=== PATIENT | female | born 1935 | race Caucasian/White ===

== ENCOUNTER 2016-09-18 21:26 | Emergency (ER) | payer MEDICARE ==
[~2016-09-18] VITALS: Ht 154.9 cm; Wt 71.8 kg
[~2016-09-18 21:26] MED LIST: 00186-0370-20 IH; ALDACTONE50 MG PO; ARTIFICIAL TEARS OP; ASPIRIN 81M81 MG/TA2 PO; ASPIRIN E.C. 8181 MG PO; CALCITRIOL PO; CALTRATE-600 W600 MG PO; CARDIZEM CD 12120 MG PO; CARTIA XT240 MG PO; CATAPRES0.3 MG PO; COLACE 100100 MG/CAP PO; CORDARONE200 MG/TAB PO; COUMADIN 1MG1 MG/TAB PO; COUMADIN 2MG2 MG/TAB PO; COUMADIN 3MG3 MG/TAB PO; COUMADIN 5MG5 MG/TAB PO; COUMADIN4 MG PO; DIOVAN 160MG160 MG PO; FENTANYL 50MCG TD; FISH OIL 1000MG1 CAP PO; FISH OIL1 IU PO; FOLIC ACID800 MCG PO; GLUCOPHAGE500 MG/TAB PO; HCTZ 25MG TAB25 MG PO; HYDROXYURE500 MG/CAP PO; IMDUR 60MG60 MG/TAB PO; IRON325 M2 PO; KLOR-CON M2020 MEQ PO; LASIX 20MG TABL20 MG PO; LASIX 40MG TABL40 MG PO; LEVOTHROID0.125 MG PO; LEVOXYL0.125 MG PO; LOVENOX 8080 MG/0.8 SQ; MACROBID 1100 MG/CAP PO; MICRO-K8 MEQ PO; MIRALAX 255 GM255 GM PO; MONOPRIL20 MG PO; MSIR30 MG PO; NATURAL POTASS595 MG PO; NITROSTAT0.4 MG/TAB SL; NORVASC 5MG5 MG/TAB PO; OYSTER SHELL C500 MG PO; PACERONE400 MG PO; PERC2.5TAB PO; PLAVIX 75MG TAB75 MG PO; PRAVACHOL 40MG40 MG PO; PRINIVIL10 MG PO; PRINIVIL20 MG PO; PROAIR HFA0.09 MG/AC IH; RT SPIRIVA18 MCG IH; SYNTHROID 0.10.15 MG PO; SYSTANE 0.3-0.1 EACH OP; TEARS-ARTIFICIA15 ML OP; TESSALON PERLE200 MG PO; TOPROL XL100 MG PO; VENTOLIN0.09 MG IH; VITAMIN D31000 IU PO; VITAMINC1000TA PO; ZANAFLEX CAPSULE4 MG PO; ZANTAC 150MG T150 MG PO; ZESTRIL 10MG10 MG PO; ZESTRIL40 MG PO; ZOFRAN ODT4 MG PO; [UNRECOGNIZED DRUG - OTHER]; provastatin PO
[2016-09-18 21:28] VITALS: TEMP 99.5
[2016-09-18] MEDS ORDERED: CALCIUM CARBON650 M2 (21:46)
[2016-09-18] MEDS ORDERED: CALCITRIOL PO (21:47)
[2016-09-18] MEDS ORDERED: ZEBETA 5MG5 MG PO (21:49)
[2016-09-18] MEDS ORDERED: LIPITOR 10MG10 MG PO (21:49)
[2016-09-18 22:16] LABS: BASO % 0.4 % (0.0-2.0); EOS # 0.1 (0.0-0.7); EOS % 1.4 % (0-4.0); GRAN # 5.6 (1.4-6.5); GRAN % 75.7 % (42.2-75.2); LYMPH # 0.9 (1.2-3.4); LYMPH % 11.5 % (20.0-51.0); MEAN CELL VOLUME 81 fl (80.0-100.0); MEAN CORPUSCULAR HGB CONC 32 g/dl (33.0-37.0); MEAN PLATELET VOLUME 11.6 fl (7.4-10.4); MONO # 0.8 (0.1-0.6); MONO % 10.6 % (1.7-9.3); PLATELET COUNT 175 K/mm3 (130-400); RED BLOOD COUNT 3.66 M/mm3 (4.10-5.30); REDCELL DISTRIBUTION WIDTH-CV 16.6 % (11.5-14.5); WHITE BLOOD COUNT 7.4 K/mm3 (4.8-10.8)
[2016-09-18 22:20] LABS: HEMATOCRIT 29.7 % (37.0-47.0); HEMOGLOBIN 9.5 g/dl (12.5-16.0); MEAN CORPUSCULAR HEMOGLOBIN 26 pg (27.0-31.0)
[2016-09-18 22:27] LABS: ADJUSTED CALCIUM 8.4 mg/dL (8.4-10.2); ALBUMIN 3.8 gm/dL (3.5-5.0); BILIRUBIN,TOTAL 0.7 mg/dL (0.0-1.0); CALCIUM 8.2 mg/dL (8.4-10.2); CREATININE, serum 1.19 mg/dL (0.52-1.25); PHOSPHOROUS 4.2 mg/dL (2.5-4.5); POTASSIUM 3.8 mmol/L (3.4-5.0); TOTAL PROTEIN 7.6 gm/dL (6.4-8.2)
[2016-09-18 22:39] LABS: TROPONIN-I 0.015 ng/mL (0.000-0.034)
[2016-09-18 22:49] LABS: PH 6 (5-8); SQUAMOUS EPITHELIAL 0-2 /hpf; URINE APPEARANCE Clear; URINE BACTERIA None Seen /hpf; URINE BILIRUBIN Negative (NEGATIVE); URINE BLOOD 2+ (NEGATIVE); URINE COLOR Yellow; URINE GLUCOSE Negative (NEGATIVE); URINE KETONE Negative (NEGATIVE); URINE WBC 0-2 /hpf
[2016-09-18 22:57] LABS: THYROID STIMULATING HORMONE 0.585 uIU/mL (0.465-4.680)
[2016-09-19] VITALS: BP 132/61
[2016-09-19 02:03] VITALS: PULSE 76
[2016-09-19] MEDS ORDERED: LEVAQUIN 5500 MG/TA1 PO (21:36)
== END 2016-09-19 02:05 | disposition home or self-care (01) ==
LOC: COL.ER 21:26
PROVIDERS: Emergency Medicine
DX: R53.1 Weakness (principal); I48.91 Unspecified atrial fibrillation; I50.9 Heart failure, unspecified; Z86.73 Personal history of transient ischemic attack (TIA), and cerebral infarction without residual deficits; Z95.2 Presence of prosthetic heart valve; Z95.0 Presence of cardiac pacemaker; R63.0 Anorexia; R42 Dizziness and giddiness
CPT/HCPCS: J0696; J7050

== ENCOUNTER → 2016-09-26 | Outpatient (REF) ==
[~2016-09-26] MED LIST changes: +CALCIUM CARBON650 M2; +LEVAQUIN 5500 MG/TA1 PO; +LIPITOR 10MG10 MG PO; +ZEBETA 5MG5 MG PO
[2016-09-26 20:28] LABS: GENTAMICIN TROUGH < 0.60 ug/mL (0.00-2.00)
[2016-09-26 21:40] LABS: C-REACTIVE PROTEIN 3.6 mg/dL (0.0-0.9)
== END ==
LOC: ZLAB.WCH 18:14
PROVIDERS: Nurse Practitioner Primary Care
DX: Z01.89 Encounter for other specified special examinations (principal)

== ENCOUNTER → 2016-09-29 | Outpatient (REF) | LOC: ZLAB.WCH 19:08 | DX: Z01.89 Encounter for other specified special examinations (principal) ==

== ENCOUNTER → 2016-10-03 | Outpatient (REF) | LOC: ZLAB.WCH 09:00 | DX: Z01.89 Encounter for other specified special examinations (principal) ==

== ENCOUNTER → 2016-10-03 | Outpatient (REF) | LOC: ZLAB.WCH 18:49 | DX: Z01.89 Encounter for other specified special examinations (principal) ==

== ENCOUNTER → 2016-10-05 | Outpatient (REF) | LOC: ZLAB.WCH 19:11 | DX: Z01.89 Encounter for other specified special examinations (principal) ==

== ENCOUNTER → 2016-10-17 | Outpatient (REF) | LOC: ZLAB.WCH 18:21 | DX: Z01.89 Encounter for other specified special examinations (principal) ==

== ENCOUNTER → 2016-10-24 | Outpatient (REF) | LOC: ZLAB.WCH 20:26 | DX: Z01.89 Encounter for other specified special examinations (principal) ==

== ENCOUNTER → 2016-10-31 | Outpatient (REF) | LOC: ZLAB.WCH 20:24 | DX: Z01.89 Encounter for other specified special examinations (principal) ==

== ENCOUNTER 2018-09-05 17:40 | Emergency (ER) | payer MEDICARE ==
[~2018-09-05] VITALS: Ht 154.9 cm; Wt 76.4 kg
[2018-09-05 18:02] VITALS: TEMP 97
[2018-09-05] MEDS ORDERED: GLUCOPHAGE500 MG/TAB PO (18:49)
[2018-09-05 19:20] LABS: BASO # 0.1 (0.0-0.2); BASO % 0.9 % (0.0-2.0); EOS # 0.4 (0.0-0.7); EOS % 4.9 % (0-4.0); GRAN # 5.5 (1.4-6.5); GRAN % 67.5 % (42.2-75.2); HEMOGLOBIN 11.4 g/dl (12.5-16.0); LYMPH # 1.4 (1.2-3.4); LYMPH % 17.2 % (20.0-51.0); MEAN CELL VOLUME 87 fl (80.0-100.0); MEAN CORPUSCULAR HEMOGLOBIN 28 pg (27.0-31.0); MEAN CORPUSCULAR HGB CONC 32 g/dl (33.0-37.0); MEAN PLATELET VOLUME 11.3 fl (7.4-10.4); MONO # 0.8 (0.1-0.6); MONO % 9.3 % (1.7-9.3); PLATELET COUNT 248 K/mm3 (130-400); RED BLOOD COUNT 4.11 M/mm3 (4.10-5.30); REDCELL DISTRIBUTION WIDTH-CV 15.3 % (11.5-14.5)
[2018-09-05 19:23] LABS: HEMATOCRIT 35.9 % (37.0-47.0)
[2018-09-05 19:41] LABS: PROTHROMBIN TIME 11.3 SECONDS (9.7-12.8)
[2018-09-05 20:04] VITALS: BP 120/53; PULSE 71
== END 2018-09-05 20:04 | disposition home or self-care (01) ==
LOC: COL.ER 17:40
PROVIDERS: Emergency Medicine
DX: R04.0 Epistaxis (principal); I48.91 Unspecified atrial fibrillation; E11.9 Type 2 diabetes mellitus without complications; I10 Essential (primary) hypertension; E03.9 Hypothyroidism, unspecified; J45.909 Unspecified asthma, uncomplicated; Z79.82 Long term (current) use of aspirin; Z86.73 Personal history of transient ischemic attack (TIA), and cerebral infarction without residual deficits; Z79.84 Long term (current) use of oral hypoglycemic drugs

== ENCOUNTER 2020-04-27 16:17 | Inpatient (IN) | payer MEDICARE ==
[~2020-04-27] VITALS: Ht 154.9 cm; Wt 71.8 kg
[~2020-04-27 16:17] MED LIST changes: -CALCIUM CARBON650 M2; +TUMS ULTRA ST1000 MG PO
[2020-04-27 17:36] LABS: BASO # 0.1 (0.0-0.2); BASO % 0.8 % (0.0-2.0); EOS # 0.3 (0.0-0.7); EOS % 3.3 % (0-4.0); GRAN # 4.8 (1.4-6.5); GRAN % 63.4 % (42.2-75.2); HEMOGLOBIN 10.2 g/dl (12.5-16.0); LYMPH # 1.7 (1.2-3.4); LYMPH % 22.7 % (20.0-51.0); MEAN CELL VOLUME 90 fl (80.0-100.0); MEAN CORPUSCULAR HEMOGLOBIN 28 pg (27.0-31.0); MEAN CORPUSCULAR HGB CONC 31 g/dl (33.0-37.0); MEAN PLATELET VOLUME 12.4 fl (7.4-10.4); MONO # 0.7 (0.1-0.6); MONO % 9.7 % (1.7-9.3); PLATELET COUNT 206 K/mm3 (130-400); RED BLOOD COUNT 3.66 M/mm3 (4.10-5.30); REDCELL DISTRIBUTION WIDTH-CV 15.9 % (11.5-14.5)
[2020-04-27 17:39] LABS: HEMATOCRIT 32.8 % (37.0-47.0)
[2020-04-27 17:50] LABS: ALANINE AMINOTRANSFERASE 390 U/L (4-34); ALKALINE PHOSPHATASE 131 U/L (50-136); ANION GAP 11 mmol/L (7-16); AST,SGOT 160 U/L (15-37); BILIRUBIN,TOTAL 0.5 mg/dL (0.0-1.0); BLOOD UREA NITROGEN 47 mg/dL (7-17); CALCIUM 9.3 mg/dL (8.4-10.2); CARBON DIOXIDE 26 mmol/L (22-30); CHLORIDE 102 mmol/L (98-107); CREATININE, serum 1.28 (0.52-1.25); GLUCOSE 91 mg/dL (74-106); POTASSIUM 4.2 mmol/L (3.4-5.0); SODIUM 139 mmol/L (137-145); TOTAL PROTEIN 7.5 gm/dL (6.4-8.2)
[2020-04-27 17:55] LABS: INR 1.4 (0.8-3.0); PROTHROMBIN TIME 15.2 SECONDS (9.7-12.8)
[2020-04-27 17:58] LABS: PARTIAL THROMBOPLASTIN TIME 33.3 SECONDS (26.0-37.0)
[2020-04-27 18:01] LABS: TROPONIN-I < 0.012 ng/mL (0.000-0.035)
[2020-04-27 20:10] LABS: TSH w REFLEX 3.93 uIU/mL (0.465-4.680)
--- NOTE | 2020-04-27 21:40 | NUR ---
Patient to medical room 315 at this time. She is alert and oriented and able to transfer with SBA from stretcher to bed. No skin issues or edema is noted. HR is currently in the low 100's; Patient has no complaints of SOA or dizziness. HR is irregular and tachycardic, lungs are clear. Cardizem gtt is initiated at 5ml/5mg an hour. Monitoring BP Q1 hours. Will continue to monitor.
[2020-04-27 22:18] VITALS: BP 117/85; PULSE 127; TEMP 97.2
[2020-04-27] MEDS ORDERED: B-12 500 MCG PO (22:42)
[2020-04-27] MEDS ORDERED: IRON18 MG1 (22:43)
[2020-04-27] MEDS ORDERED: ZEBETA10 MG PO (22:43)
[2020-04-27] MEDS ORDERED: ARICEPT10 MG PO (22:45)
[2020-04-27 23:04] VITALS: BP 110/62; PULSE 62; TEMP 97.2
[2020-04-28] VITALS (19 sets, daily range): BP systolic 97–135; BP diastolic 43–98; PULSE 55–129; TEMP 97.1–98.1
--- NOTE | 2020-04-28 04:45 | NUR ---
Patient's BP is 99/52 at this time. BRANDON Martin is notified and orders to hold Cardizem drip for now. At 0530, HR is back up to 120's. BRANDON Martin orders for restart of Cardizem drip at 5ml/hr. Patient is tolerating drip well and is maintaining pressures. Will continue to closely monitor.
--- NOTE | 2020-04-28 07:15 | NUR ---
Pt resting in bed. Assessment as noted. Telemetry on. HR irregular. Crackles noted in bilateral bases. No SOB at rest. Pitting edema 1+ BLE. INT to LAC intact. Pt denies pain. CMS CKS WNL.
[2020-04-28 07:23] LABS: BASO # 0.1 (0.0-0.2); BASO % 0.8 % (0.0-2.0); EOS # 0.3 (0.0-0.7); EOS % 4.9 % (0-4.0); GRAN # 3.8 (1.4-6.5); GRAN % 62.5 % (42.2-75.2); LYMPH # 1.3 (1.2-3.4); LYMPH % 21.1 % (20.0-51.0); MEAN CELL VOLUME 91 fl (80.0-100.0); MEAN CORPUSCULAR HGB CONC 31 g/dl (33.0-37.0); MONO # 0.6 (0.1-0.6); MONO % 10.5 % (1.7-9.3); PLATELET COUNT 176 K/mm3 (130-400); RED BLOOD COUNT 3.44 M/mm3 (4.10-5.30)
[2020-04-28 07:25] LABS: HEMATOCRIT 31.2 % (37.0-47.0); HEMOGLOBIN 9.8 g/dl (12.5-16.0); MEAN CORPUSCULAR HEMOGLOBIN 28 pg (27.0-31.0)
[2020-04-28 07:34] LABS: ALBUMIN 3.6 gm/dL (3.5-5.0); BILIRUBIN,TOTAL 0.6 mg/dL (0.0-1.0); CALCIUM 8.7 mg/dL (8.4-10.2); CREATININE, serum 1.14 (0.52-1.25); TOTAL PROTEIN 6.9 gm/dL (6.4-8.2)
--- NOTE | 2020-04-28 10:46 | NUR ---
Pt assessment completed and charted. Pt has [facility] student also providing cares this morning. Pt laying in bed, A&O, independent in room w/ cane. Pt on room air, breathing is even and unlabored, c/o of some SOB w/ exertion. HR and rhythm irregular, pt remains in afib. Pt to have SAIMA/cardioversion this morning. Pt remains on cardizem gtt, vitals Q1. Cardizem gtt @ 5ml/hr at this time. Pt has LAC IV w/ gtt running, pt c/o pain to site, redness and edema noted. IV site changed to 22g RFA, LAC IV removed at this time. Consent signed and on chart.
--- NOTE | 2020-04-28 11:22 | NUR ---
Pt down for SAIMA/Cardioversion at this time w/ Pattie.
--- NOTE | 2020-04-28 11:55 | NUR ---
INT to LAC d'cd, Cathlon intact.
--- NOTE | 2020-04-28 12:50 | NUR ---
Pt back from cardioversion, back in NS. Pt awake, alert, doing well, no issues noted. Cardizem gtt dc'd. Will start on hep gtt. Awaiting hep xa lab then will start.
--- NOTE | 2020-04-28 15:47 | NUR ---
Pt started on hep gtt at 13 mls/hr, verified w/ Shahrzad RN. IV bolus given per may. Initial hep xa 0.00. Net lab draw at 2029. No further needs at this time. Pt received lunch.
--- NOTE | 2020-04-28 17:06 | NUR ---
Social [employer] met with patient and patient's daughter, Hazel (ph#[phone]) to discuss discharge planning. Patient lives in [place] with her , Fabricio. Patient states Fabricio will likely not answer a phone call because he is hard of hearing. Patient sees Dr. Thorpe for primary care and obtains medications from [facility] with no difficulties. Patient uses a cane for ambulation and is independent with ADLS. Patient states she has completed DPOA-HC which designates her children. Patient reports her PCPs office would likely have a copy. Patient plans to return home upon discharge. ALEX contacted SILVERIO McclainCM at [facility] and left a message. ALEX also collaborated with BRANDON Arreola about PT/OT orders. ALEX will continue to follow.
--- NOTE | 2020-04-28 20:02 | NUR ---
Initial shift assessment done-- denies pain, denies SOB, heparin drip at 13cc/hr- will have hepXA at 2029, Will call for assistance up to bathroom0
[2020-04-30 15:43] LABS: INR 1.4 (0.8-3.0); PROTHROMBIN TIME 15.7 SECONDS (9.7-12.8)
[2020-04-30 15:43] LABS: PARTIAL THROMBOPLASTIN TIME 183.2 SECONDS (26.0-37.0)
[2020-04-30 15:44] LABS: ALBUMIN 3.7 gm/dL (3.5-5.0); BILIRUBIN,TOTAL 0.5 mg/dL (0.0-1.0); CALCIUM 8.5 mg/dL (8.4-10.2); CREATININE, serum 1.09 (0.52-1.25); POTASSIUM 3.8 mmol/L (3.4-5.0); TOTAL PROTEIN 7.1 gm/dL (6.4-8.2)
[2020-05-01 00:08] LABS: MEAN CORPUSCULAR HEMOGLOBIN 29 pg (27.0-31.0); RED BLOOD COUNT 3.46 M/mm3 (4.10-5.30)
[2020-05-01 00:09] LABS: BASO % 0.6 % (0.0-2.0); EOS # 0.3 (0.0-0.7); EOS % 4.6 % (0-4.0); GRAN % 68.2 % (42.2-75.2); HEMATOCRIT 31.2 % (37.0-47.0); LYMPH # 1.3 (1.2-3.4); LYMPH % 17.3 % (20.0-51.0); MEAN CELL VOLUME 90 fl (80.0-100.0); MEAN CORPUSCULAR HGB CONC 32 g/dl (33.0-37.0); MEAN PLATELET VOLUME 12.6 fl (7.4-10.4); MONO # 0.7 (0.1-0.6); PLATELET COUNT 172 K/mm3 (130-400); REDCELL DISTRIBUTION WIDTH-CV 16.4 % (11.5-14.5)
== END 2020-04-29 15:15 | disposition home or self-care (01) | DRG 309 ==
LOC: COL.ER 16:17 → MEDICAL 18:32
PROVIDERS: Family Medicine; Student in an Organized Health Care Education/Training Program; ADMIT Hospitalist
PROC: 5A2204Z Restoration of Cardiac Rhythm, Single (ICD-10-PCS; principal; 2020-04-27)
DX: I48.91 Unspecified atrial fibrillation (principal); I13.0 Hypertensive heart and chronic kidney disease with heart failure and stage 1 through stage 4 chronic kidney disease, or unspecified chronic kidney disease; N17.9 Acute kidney failure, unspecified; I50.32 Chronic diastolic (congestive) heart failure; N18.9 Chronic kidney disease, unspecified; E11.22 Type 2 diabetes mellitus with diabetic chronic kidney disease; E03.9 Hypothyroidism, unspecified; R74.01 Elevation of levels of liver transaminase levels; D63.1 Anemia in chronic kidney disease; I08.0 Rheumatic disorders of both mitral and aortic valves; R79.1 Abnormal coagulation profile; F03.90 Unspecified dementia, unspecified severity, without behavioral disturbance, psychotic disturbance, mood disturbance, and anxiety; Z95.0 Presence of cardiac pacemaker; Z86.73 Personal history of transient ischemic attack (TIA), and cerebral infarction without residual deficits; Z79.84 Long term (current) use of oral hypoglycemic drugs; Z79.82 Long term (current) use of aspirin; Z88.6 Allergy status to analgesic agent; Z88.7 Allergy status to serum and vaccine; Z95.2 Presence of prosthetic heart valve
CPT/HCPCS: 99223-AI; 99232-AI; G0378; J1644; J1815; J2704; J7030; Q9967

== ENCOUNTER 2020-08-06 08:43 | Day surgery (SDC) | payer MEDICARE ==
[2020-08-06] VITALS (7 sets, daily range): BP systolic 142–162; BP diastolic 64–89; PULSE 69–70; TEMP 98
[~2020-08-06] VITALS: Ht 154.9 cm; Wt 67.3 kg
[~2020-08-06 08:43] MED LIST changes: +ARICEPT10 MG PO; +B-12 500 MCG PO; +IRON18 MG1; +ZEBETA10 MG PO
[2020-08-06] MEDS ORDERED: COUMADIN 3MG3 MG/TAB PO ×2 (10:13)
[2020-08-06 10:28] LABS: HEMOGLOBIN 10.1 g/dl (12.5-16.0); MEAN CELL VOLUME 89 fl (80.0-100.0); MEAN CORPUSCULAR HEMOGLOBIN 28 pg (27.0-31.0); MEAN CORPUSCULAR HGB CONC 31 g/dl (33.0-37.0); MEAN PLATELET VOLUME 10.9 fl (7.4-10.4); PLATELET COUNT 245 K/mm3 (130-400); RED BLOOD COUNT 3.66 M/mm3 (4.10-5.30); REDCELL DISTRIBUTION WIDTH-CV 16.9 % (11.5-14.5)
[2020-08-06 10:29] LABS: HEMATOCRIT 32.5 % (37.0-47.0)
[2020-08-06 10:37] LABS: INR 2.4 (0.8-3.0)
[2020-08-06 10:39] LABS: PARTIAL THROMBOPLASTIN TIME 40.1 SECONDS (26.0-37.0)
[2020-08-06 10:50] LABS: CALCIUM 9.7 mg/dL (8.4-10.2); CREATININE, serum 1.26 (0.52-1.25); POTASSIUM 3.4 mmol/L (3.4-5.0)
[2020-08-06 11:09] LABS: MAGNESIUM 2.1 mg/dL (1.6-2.3)
[2020-08-06 11:18] LABS: THYROID STIMULATING HORMONE 1.25 uIU/mL (0.465-4.680)
[2020-08-06] MEDS ORDERED: MULTAQ400 MG PO (13:47)
--- NOTE | 2020-08-06 14:15 | NUR ---
pt care was assumed at 1145 from Alvaro RN/ pt has been awake and resting comfortably during her recovery. She has remained V paced on monitor throughout her recovery. pt was able to eat lunch and took her initial multq at that time which she has tolerated wtih no problem. DC rx and fu instructions were reviewed, iv dc'd with cath intact. pt has been up steady on her feet. to exit via wheelchair.
== END 2020-08-06 17:01 | disposition home or self-care (01) ==
LOC: COL.CAR 08:43
PROVIDERS: Internal Medicine Cardiovascular Disease
DX: I48.0 Paroxysmal atrial fibrillation (principal); I50.9 Heart failure, unspecified; I48.91 Unspecified atrial fibrillation; I48.92 Unspecified atrial flutter; I63.9 Cerebral infarction, unspecified; I27.20 Pulmonary hypertension, unspecified; I11.0 Hypertensive heart disease with heart failure; G47.33 Obstructive sleep apnea (adult) (pediatric); E11.9 Type 2 diabetes mellitus without complications; E03.9 Hypothyroidism, unspecified; D64.9 Anemia, unspecified; Z95.2 Presence of prosthetic heart valve; Z79.82 Long term (current) use of aspirin; Z99.89 Dependence on other enabling machines and devices; Z79.84 Long term (current) use of oral hypoglycemic drugs; Z79.899 Other long term (current) drug therapy; Z79.890 Hormone replacement therapy; Z85.828 Personal history of other malignant neoplasm of skin; Z80.9 Family history of malignant neoplasm, unspecified; Z82.3 Family history of stroke
CPT/HCPCS: J2704

== ENCOUNTER 2021-04-09 14:00 | Outpatient (RCR) | payer MEDICARE ==
[2021-04-07 14:18] VITALS: BP 160/68; PULSE 69; TEMP 98.5
[~2021-04-09] VITALS: Ht 154.9 cm; Wt 65.9 kg
[~2021-04-09 14:00] MED LIST changes: -LEVOXYL0.125 MG PO; +LEVOXYL0.137 MG PO; +MIRALAX PA17 GM/Dose PO; +MULTAQ400 MG PO; +PACERONE100 MG PO; +ZESTRIL 20MG TA20 MG PO
[2021-04-09 14:30] VITALS: BP 154/62; PULSE 72; TEMP 98
== END 2021-04-09 14:30 | disposition home or self-care (01) ==
LOC: EUO 14:00
DX: D50.8 Other iron deficiency anemias (principal); I48.0 Paroxysmal atrial fibrillation
CPT/HCPCS: J1756